=== PATIENT | female | born 1970 | race Caucasian/White ===

== ENCOUNTER → 2018-03-06 09:43 | Outpatient (CLI) | payer BC, SELFPAY ==
--- NOTE | 2018-03-06 09:00 | DI.MG.S_ITS ---
Patient Name: HOME WITT date: 1970 Sex: F Attending Physician: Kanwal Indications: Date: 03/06/2018 10:01 At the request of: GUILLERMINA HARO Procedure: MM screening mammo BI BILATERAL DIGITAL SCREENING MAMMOGRAM 3D/2D WITH CAD: 03/06/2018 CLINICAL: Baseline exam. Routine screening. No prior exams were available for comparison. There are scattered fibroglandular elements in both breasts. Current study was also evaluated with a Computer Aided Detection (CAD) system. No significant masses, calcifications, or other findings are seen in either breast. IMPRESSION: NEGATIVE There is no mammographic evidence of malignancy. A 1 year screening mammogram is recommended. This exam was interpreted at Station ID: [id number]. NOTE: For mammograms, a report in lay terms will be sent to the patient. Approximately 15% of breast malignancies will not be visualized mammographically. In the management of a palpable breast mass, a negative mammogram must not discourage biopsy of a clinically suspicious lesion. Electronically Signed By: Joao schultz/pablo:03/08/2018 09:16:18 Entry: - 03/08/2018 09:16:18 letter sent: Normal Exam ACR BI-RADS Category 1: Negative 3341F
== END ==
PROVIDERS: Visit Provider Physician Assistant Medical
DX: Z12.31 Encounter for screening mammogram for malignant neoplasm of breast (principal)
CPT/HCPCS: 77063; 77067

== ENCOUNTER → 2019-04-08 11:35 | Outpatient (CLI) | payer BC, SELFPAY ==
--- NOTE | 2019-04-08 | DI.MG.S_ITS ---
BILATERAL DIGITAL SCREENING MAMMOGRAM 3D/2D WITH CAD: 04/08/2019 CLINICAL: Routine screening. Comparison is made to exam dated: 03/06/2018 [facility]. There are scattered fibroglandular elements in both breasts. Current study was also evaluated with a Computer Aided Detection (CAD) system. No significant masses, calcifications, or other findings are seen in either breast. There has been no significant interval change. IMPRESSION: NEGATIVE There is no mammographic evidence of malignancy. A 1 year screening mammogram is recommended. This exam was interpreted at Station ID: [id number]. NOTE: For mammograms, a report in lay terms will be sent to the patient. Approximately 15% of breast malignancies will not be visualized mammographically. In the management of a palpable breast mass, a negative mammogram must not discourage biopsy of a clinically suspicious lesion. Electronically Signed By: Joao schultz/pablo:04/08/2019 18:17:11 letter sent: Normal Exam ACR BI-RADS Category 1: Negative 3341F
== END ==
PROVIDERS: PCP Physician Assistant Medical; Referring Provider Physician Assistant Medical; Visit Provider Physician Assistant Medical
DX: Z12.31 Encounter for screening mammogram for malignant neoplasm of breast (principal)
CPT/HCPCS: 77063; 77067

== ENCOUNTER → 2020-04-10 15:39 | Outpatient (CLI) | payer BC, SELFPAY ==
--- NOTE | 2020-04-10 | DI.MG.S_ITS ---
BILATERAL DIGITAL SCREENING MAMMOGRAM 3D/2D WITH CAD: 04/10/2020 CLINICAL: Routine screening. Comparison is made to exams dated: 04/08/2019 mammogram and 03/06/2018 mammogram - [facility]. There are scattered fibroglandular elements in both breasts. Current study was also evaluated with a Computer Aided Detection (CAD) system. No significant masses, calcifications, or other findings are seen in either breast. There has been no significant interval change. IMPRESSION: NEGATIVE There is no mammographic evidence of malignancy. A 1 year screening mammogram is recommended. This exam was interpreted at Station ID: [id number]. NOTE: For mammograms, a report in lay terms will be sent to the patient. Approximately 15% of breast malignancies will not be visualized mammographically. In the management of a palpable breast mass, a negative mammogram must not discourage biopsy of a clinically suspicious lesion. Electronically Signed By: Glenn salomon/pablo:04/10/2020 15:59:01 letter sent: Normal Exam ACR BI-RADS Category 1: Negative 3341F
== END ==
PROVIDERS: PCP Physician Assistant Medical; Referring Provider Physician Assistant Medical; Visit Provider Physician Assistant Medical
DX: Z12.31 Encounter for screening mammogram for malignant neoplasm of breast (principal)
CPT/HCPCS: 77063; 77067

== ENCOUNTER → 2021-05-15 16:32 | Outpatient (CLI) | payer BC, SELFPAY ==
--- NOTE | 2021-05-15 16:36 | DI.MG.S_ITS ---
BILATERAL DIGITAL SCREENING MAMMOGRAM 3D/2D WITH CAD: 05/15/2021 CLINICAL: Routine screening. Comparison is made to exams dated: 04/10/2020 mammogram, 04/08/2019 mammogram, and 03/06/2018 mammogram - [facility]. There are scattered fibroglandular elements in both breasts. Current study was also evaluated with a Computer Aided Detection (CAD) system. No significant masses, calcifications, or other findings are seen in either breast. There has been no significant interval change. IMPRESSION: NEGATIVE There is no mammographic evidence of malignancy. A 1 year screening mammogram is recommended. This exam was interpreted at Station ID: [id number]. NOTE: For mammograms, a report in lay terms will be sent to the patient. Approximately 15% of breast malignancies will not be visualized mammographically. In the management of a palpable breast mass, a negative mammogram must not discourage biopsy of a clinically suspicious lesion. Electronically Signed By: Juan Murray M.D. [facility] [place] [place]/pentj:05/16/2021 08:30:22 letter sent: Normal Exam ACR BI-RADS Category 1: Negative 3341F
== END ==
PROVIDERS: PCP Physician Assistant; Referring Provider Physician Assistant; Visit Provider Nurse Practitioner Family
DX: Z12.31 Encounter for screening mammogram for malignant neoplasm of breast (principal)
CPT/HCPCS: 77063; 77067

== ENCOUNTER → 2022-05-20 15:43 | Outpatient (CLI) | payer BC, SELFPAY ==
--- NOTE | 2022-05-20 | DI.MG.S_ITS ---
BILATERAL DIGITAL SCREENING MAMMOGRAM 3D/2D WITH CAD: 05/20/2022 CLINICAL: Routine screening. Comparison is made to exams dated: 05/15/2021 mammogram, 04/10/2020 mammogram, and 04/08/2019 mammogram - [facility]. There are scattered areas of fibroglandular density in both breasts (category b / 25%-50% glandular tissue). Current study was also evaluated with a Computer Aided Detection (CAD) system. No significant masses, calcifications, or other findings are seen in either breast. There has been no significant interval change. IMPRESSION: NEGATIVE There is no mammographic evidence of malignancy. A 1 year screening mammogram is recommended. Based on the Tyrer Cuzick model (a risk assessment model) the patient's lifetime risk is 7.5% and her 10 year risk is 1.7%. According to the ACR, ACS, and NCCN guidelines, an annual breast MRI exam along with mammogram is recommended if the patient's lifetime risk is 20% or greater. This exam was interpreted at Station ID: [id number]. NOTE: For mammograms, a report in lay terms will be sent to the patient. Approximately 15% of breast malignancies will not be visualized mammographically. In the management of a palpable breast mass, a negative mammogram must not discourage biopsy of a clinically suspicious lesion. Electronically Signed By: Zachariah cook/pablo:05/21/2022 08:20:50 letter sent: Normal Exam ACR BI-RADS Category 1: Negative 3341F
== END ==
PROVIDERS: PCP Physician Assistant; Referring Provider Family Medicine; Visit Provider Family Medicine
DX: Z12.31 Encounter for screening mammogram for malignant neoplasm of breast (principal)
CPT/HCPCS: 77063; 77067

== ENCOUNTER → 2023-01-21 15:30 | Outpatient (CLI) | payer BC, SELFPAY ==
--- NOTE | 2023-01-21 15:31 | DI.RAD.S_ITS ---
PROCEDURE: XR KNEE LT 3V INDICATIONS: left knee pain TECHNIQUE: 3 views of the knee were acquired. COMPARISON: None. FINDINGS: Bones: No fractures or dislocations. No patellar subluxation. No suspicious bony lesions. Soft tissues: No joint effusion. No suspicious soft tissue calcifications. IMPRESSION: Unremarkable radiographic examination of left knee. Dictated by: Montrell Alonso M.D. on 01/21/2023 at 17:00 Approved by: Montrell Alonso M.D. on 01/21/2023 at 17:00
== END ==
PROVIDERS: PCP Family Medicine; Referring Provider Family Medicine; Visit Provider Family Medicine
DX: M25.562 Pain in left knee (principal)
CPT/HCPCS: 73562

== ENCOUNTER 2023-05-19 12:12 | Day surgery (SDC) | payer BC, SELFPAY ==
[2023-05-19] MEDS: LACTATED RINGERS 1,000 ML 42 ML IV (12:36)
[2023-05-19 12:45] VITALS: BP 145/75; PULSE 92; RESP 16; TEMP 36.2; O2SAT 98
--- NOTE | 2023-05-19 13:24 | PM.HP.1 ---
History of Present Illness History of Present Illness Date Patient Seen: 05/19/23 Time Patient Seen: 13:24 Chief complaint: SDC Narrative: 52-year-old woman here for screening colonoscopy. No previous colonoscopy. No family history of intestinal malignancy. She reports having to strain in order to defecate and urinate and has a history of rectocele and cystocele. [facility] Medical History Depression (~2007) ADHD (~1974) Carpal tunnel syndrome (~2015) Elevated BP without diagnosis of hypertension Restless legs syndrome (RLS) (~2017) Obstructive sleep apnea, adult (~09/2019) Obesity (BMI 30-39.9) Surgical History Anesthesia History of tonsillectomy (~1977) History of laparoscopic-assisted vaginal hysterectomy (~04/2007) Family History Father Hypertension Mother Congestive heart failure Pneumonia Social History Smoking Status: Never smoker alcohol intake: current substance use type: does not use Meds Home Medications and Allergies Home Medications Medication Instructions Recorded Confirmed Type allertec 10 mg PO DAILY 06/27/20 05/19/23 History sertraline 50 mg tablet 50 mg PO DAILY 06/27/20 05/19/23 History Allergies Allergy/AdvReac Type Severity Reaction Status Date / Time No Known Drug Allergies Allergy Verified 05/19/23 12:37 Exam Vital Signs (past 8 hours): - 05/19/23 12:45 Temperature 97.1 F L Pulse Rate 92 H Respiratory Rate 16 Blood Pressure 145/75 H Pulse Oximetry 98 Oxygen Delivery Method Room Air Oxygen Delivery Method Room Air Narrative Exam Narrative: General adult woman alert oriented no acute distress Chest nonlabored respiration Extremities warm well perfused Assessment & Plan Assessment & Plan narrative: The patient requires colorectal screening and colonoscopy is recommended. Technical details were discussed. Risks, benefits, alternatives explained. Risks including but not limited to myocardial infarction, aspiration, bleeding, pain, missed lesion, incomplete examination, need for further radiographic studies, colonic perforation, and need for major abdominal surgery were discussed. All questions were answered to their satisfaction, and they are in agreement with this plan.
[2023-05-19 13:57] VITALS: BP 138/72; PULSE 90; RESP 16; TEMP 37.2; O2SAT 97
--- NOTE | 2023-05-19 13:58 | P.OP.COLON_ITS ---
Operative Date/Time/Diagnoses Date of procedure: 05/19/23 Time of procedure: 13:58 Pre-op diagnosis: Colorectal screening Post-op diagnosis: same Procedure & Clinicians Study performed: Screening colonoscopy Same procedure as scheduled: Yes Indications: Colorectal screening Surgeon: Steven Jha Procedure Notes Procedure in detail: The history and physical was performed/updated and the patient is ASA class is 2. The procedure was discussed in detail with the patient. Potential risks complications including infection, bleeding, missed diagnosis, perforation, need for surgery, and were explained. Their questions were answered and informed consent was obtained. Patient was brought to the procedure room and placed standard monitoring equipment. The patient's vital signs were monitored continuously throughout the entire procedure. Prior to starting time-out was performed. The patient was placed in the left lateral recumbent position. Procedural sedation was administered by anesthesia. Examination began with a thorough inspection of the perianal area there was no evidence of fissures, fistulae, external hemorrhoids or cutaneous malignancy. The colonoscopy scope was then placed into the anal canal and was advanced to the cecum, which was identified by the ileocecal valve, the appendiceal orifice and the confluence of the taenia. The scope was then slowly withdrawn examining colon thoroughly in all directions, irrigating it of any residual stool. The scope was retroflexed within the rectum The patient tolerated the procedure well. They will be discharged once criteria are met. The prep was of good/excellent quality. The withdrawl time was 7 minutes. FINDINGS * Unremarkable colonoscopy. No masses polyps inflammation, normal healthy colonic mucosa Specimen(s): none sent Impression: Normal colonoscopy Post-procedure Recommendations: Colonoscopy in 10 years and High fiber diet Disposition: same day surgery
[2023-05-19 14:03] VITALS: BP 117/78; PULSE 86; RESP 16; TEMP 37.1; O2SAT 96
[2023-05-19 14:08] VITALS: BP 128/67; PULSE 83; RESP 12; O2SAT 96
== END 2023-05-19 14:35 | disposition home or self-care (01) ==
PROVIDERS: PCP Family Medicine; Referring Provider Surgery; Visit Provider Surgery
PROC: 0DJD8ZZ Inspection of Lower Intestinal Tract, Via Natural or Artificial Opening Endoscopic (ICD-10-PCS; CPT 45378; principal; 2023-05-19 13:15)
DX: Z12.11 Encounter for screening for malignant neoplasm of colon (principal)
CPT/HCPCS: 45378; J2704

== ENCOUNTER → 2023-05-25 14:37 | Outpatient (CLI) | payer BC, SELFPAY ==
--- NOTE | 2023-05-25 14:38 | DI.MG.S_ITS ---
BILATERAL DIGITAL SCREENING MAMMOGRAM 3D/2D WITH CAD: 05/25/2023 CLINICAL: Routine screening. Comparison is made to exams dated: 05/20/2022 mammogram, 05/15/2021 mammogram, and 04/10/2020 mammogram - [facility]. There are scattered areas of fibroglandular density in both breasts (category b / 25%-50% glandular tissue). Current study was also evaluated with a Computer Aided Detection (CAD) system. No significant masses, calcifications, or other findings are seen in either breast. There has been no significant interval change. IMPRESSION: NEGATIVE There is no mammographic evidence of malignancy. A 1 year screening mammogram is recommended. Based on the Tyrer Cuzick model (a risk assessment model) the patient's lifetime risk is 7.4% and her 10 year risk is 1.8%. According to the ACR, ACS, and NCCN guidelines, an annual breast MRI exam along with mammogram is recommended if the patient's lifetime risk is 20% or greater. This exam was interpreted at Station ID: [id number]. NOTE: For mammograms, a report in lay terms will be sent to the patient. Approximately 15% of breast malignancies will not be visualized mammographically. In the management of a palpable breast mass, a negative mammogram must not discourage biopsy of a clinically suspicious lesion. Electronically Signed By: Glenn salomon/pablo:05/26/2023 11:17:37 letter sent: Normal Exam ACR BI-RADS Category 1: Negative 3341F
== END ==
PROVIDERS: PCP Family Medicine; Referring Provider Family Medicine; Visit Provider Family Medicine
DX: Z12.31 Encounter for screening mammogram for malignant neoplasm of breast (principal); R92.323 Mammographic fibroglandular density, bilateral breasts
CPT/HCPCS: 77063; 77067

== ENCOUNTER 2023-07-23 08:19 | Day surgery (SDC) | payer BC, SELFPAY ==
[2023-07-15 08:09] VITALS: BMI 35.0
[2023-07-23] VITALS (20 sets, daily range): BP systolic 100–156; BP diastolic 54–75; PULSE 57–130; RESP 12–22; TEMP 36.1–37; O2SAT 97–100; BMI 34.0
[2023-07-23] MEDS: LACTATED RINGERS 1,000 ML 42 ML IV ×2 (09:04→11:35)
[2023-07-23] MEDS: SCOPOLAMINE 1 PATCH TOP (09:09)
--- NOTE | 2023-07-23 10:24 | PM.PREOP ---
Pre-operative Note COVID-19 COVID-19 status: Not tested Interval Note History & Physical reviewed/Exam performed by Physician: Yes Changes to H&P: No
[2023-07-23] MEDS: CEFAZOLIN 2 GM/100 ML PREMIX 100 ML IV (10:50)
[2023-07-23] MEDS: ACETAMINOPHEN IV 1,000 MG/100 ML VIAL 400 MG IV (11:00)
--- NOTE | 2023-07-23 11:12 | SUR.OPER ---
Lithotomy on padded OR bed, head on pillow, arms secured on padded arm boards at <90 degrees abduction. Legs secured in padded yellow fins stirrups.
[2023-07-23] MEDS: BUPIVACAINE 0.25% W/ EPI 30 ML VIAL INJ (11:25)
--- NOTE | 2023-07-23 13:15 | PM.GYNOP.1 ---
Operative Date/Time/Diagnoses Date of procedure: 07/23/23 Time of procedure: 11:10 Pre-op diagnosis: Cystocele Rectocele Stress urinary incontinence Post-op diagnosis: same Procedure & Clinicians Procedure: Procedures Operation Date: 07/23/23 09:45 Actual Procedure Side Surgeon p Anterior/Posterior Repair Adan Rico MD s Mid Urethral sling with cystoscopy Adan Rico MD Indications: Lelo is a 52-year-old , LMP in 2004 when she had a LAVH with bilateral salpingectomy who presents for re-evaluation of pelvic organ prolapse. She is been previously diagnosed with both rectocele and cystocele by Dr. Tamika Kauffman. Pelvic floor exercises have not been beneficial. Her symptoms are largely prolapse related with what she describes as a ?tennis ball? sticking out of the vagina by the end of the day. She also has stress urinary incontinence as well as urinary hesitancy when the prolapse is at its worst. She also feels as though she incompletely empties her bladder. She denies urge incontinence but is having significant vasomotor symptoms and night sweats especially over the last year and a half. She occasionally has difficulty passing hard bowel movements but does not have to stent to effectively defecate. Patient has no stool incontinence. She is had 3 spontaneous vaginal births the largest of which was 6 lb 12 oz but she denies any obstetrical trauma or forcep use at the time of her deliveries. We discussed various options for correcting her support defects was discussions, patient has decided to proceed with anterior and posterior colporrhaphy/vaginal enterocele repair/perineoplasty, with placement of a mid urethral sling cystoscopy. She presents today for her scheduled surgery. Surgeon: Adan Rico Licensed Practical Nurse Clinic Nurse: Ariane Mccray Anesthesia Type: General Operative Notes Findings: The uterus is normal in shape but is upper limits of normal size and diffusely enlarged. Both fallopian tubes appeared to be normal as do both ovaries. In the anterior cul-de-sac to the right of the midline there was a superficial endometriotic implant over the dome of the bladder. The posterior cul-de-sac is unremarkable with the exception of a cluster of superficial endometrial implants overlying the distal portion of the left uterosacral ligament. There were no other areas of endometriosis noted in the abdominal cavity. The appendix appears normal as do the diaphragms, liver edge, and visible gallbladder. Closure Type: primary Specimen(s): none Applied: catheter Estimated blood loss (mL): 200 Blood products transfused: none Procedure in detail: With the patient in modified dorsal lithotomy position preparations were made by prepping and draping the patient in usual manner for vaginal surgery and insertion of Sykes catheter. A pre-surgical time-out was then taken in accordance with [facility] policy. A bivalve speculum was then placed in the vagina and the cervix visualized. The anterior lip of the cervix was then grasped with a single-tooth tenaculum. The uterus was sounded to 9 cm, the endocervical canal dilated slightly, and a VCare uterine manipulator with a large colpotomy cup was placed. The umbilicus was then infiltrated with 0.5% Marcaine with epinephrine. A 1 cm umbilical incision was made transversely and a Veress needle was used to insufflate the abdominal cavity with carbon dioxide. Once the abdomen was appropriately insufflated, a 5 mm trocar and sleeve were then placed through the umbilical incision. The scope was placed through the trocar and the initial assessment of the intra-abdominal contents carried out. A 2nd and 3rd 5 mm port was then placed 1st in the right mid quadrant from then the left mid quadrant by infiltration of the skin and subcutaneous tissues, a 1 cm transverse incision and insertion of the 5 mm bladeless port. Using a 3 puncture technique, the abdomen and pelvis were inspected laparoscopy and photographically documented. Uterus is mobilized with the VCare manipulator and attention turned to the left adnexa. The distal tube was then grasped and the fimbria varicose divided after coagulation with the PowerSeal device. The dissection was then carried out toward the cornua and the fallopian tube amputated. The tube was removed through a 5 mm port and dissection was then carried down using the PowerSeal device so as to divide the utero-ovarian ligament and the round ligament with blunt and sharp dissection of the broad down to the level of the uterine artery. The uterine artery was then skeletonized after development of a bladder flap, coagulated, and divided. Once hemostasis was assured on the left side attention was turned to the right and the tube, utero-ovarian ligament, round ligament, and broad ligament were dissected in a fashion exactly the same as it had been on the left. The right uterine artery was then visualized after skeletonization and coagulated and divided. The uterus was seen to cholo after coagulation of both your arteries and the cup was identified through the vaginal muscularis at its insertion with the body of the cervix. Circumferential excision of the vaginal cup was accomplished without difficulty using monopolar current and the uterus mobilized. The uterus was then removed through the vagina and the vaginal cuff closed [id number] with a series of 0 Vicryl [id number] stitches. Hemostasis was excellent, the abdomen was re-insufflated, and the pelvis inspected laparoscopically. The pelvis was inspected for any abnormality or bleeding, and the ureters were each seen to be peristalsing freely. With complete hemostasis assured, the pneumoperitoneum was vented and the ports removed. All of the 5 mm ports were then closed with 4-0 Monocryl on the skin using inverted interrupted sutures. Skin glue was placed and after the glue was dried, an appropriate dressing was applied. The case was then terminated, the patient awakened, and then transferred to PACU after having tolerated the procedure well. Complications: none Post-operative Condition: stable Disposition: PACU Plan for aftercare: Recovery in ambulatory surgery in discharge home later today if pain is under control and she is tolerating oral intake well.
--- NOTE | 2023-07-23 14:10 | PM.PN.1 ---
Subjective Subjective Date Patient Seen: 07/23/23 Time Patient Seen: 14:10 Interval history: Patient's vaginal bleeding in the PACU is in excess of what would be expected and will therefore return for EUA and control of suspected bleeding from posterior colporrhaphy. Exam Vital Signs (past 8 hours): - 07/23/23 08:58 07/23/23 13:10 07/23/23 13:17 Temperature 98.5 F 97.5 F L 97.4 F L Pulse Rate 80 91 H 57 L Respiratory Rate 16 14 12 Blood Pressure 147/72 H 120/59 L 120/57 L Pulse Oximetry 100 97 97 Oxygen Delivery Method Room Air Room Air Room Air 07/23/23 13:20 07/23/23 13:24 07/23/23 13:35 Temperature 97.2 F L 98.4 F Pulse Rate 80 84 78 Respiratory Rate 16 22 16 Blood Pressure 147/72 H 122/65 100/60 Pulse Oximetry 98 97 98 Oxygen Delivery Method Room Air Room Air Room Air 07/23/23 13:45 07/23/23 14:08 Temperature Pulse Rate 88 100 H Respiratory Rate 14 16 Blood Pressure 100/60 119/54 L Pulse Oximetry 98 98 Oxygen Delivery Method Room Air Room Air Oxygen Delivery Method Room Air [facility] Medical History (Updated 07/23/23 @ 14:14 by Adan Rico MD) Depression (~2007) ADHD (~1974) Carpal tunnel syndrome (~2015) Elevated BP without diagnosis of hypertension Restless legs syndrome (RLS) (~2017) Obstructive sleep apnea, adult (~09/2019) Obesity (BMI 30-39.9) Surgical History (Updated 07/15/23 @ 08:14 by Roula Okeefe RN) Hx of colonoscopy (05/19/23) Anesthesia History of tonsillectomy (~1977) History of laparoscopic-assisted vaginal hysterectomy (~04/2007) Family History Father Hypertension Mother Congestive heart failure Pneumonia Social History household members: spouse Smoking Status: Never smoker alcohol intake: current substance use type: does not use Assessment & Plan Assessment and plan (1) Postoperative vaginal bleeding following genitourinary procedure: Status: Acute Plan Will return to OR for removal of vaginal packing, EUA, and control of any bleeding point(s) identified. jw
--- NOTE | 2023-07-23 14:49 | SUR.OPER ---
Lithotomy on padded OR bed, head on pillow, arms secured on padded arm boards at <90 degrees abduction. Legs secured in padded yellow fins stirrups.
--- NOTE | 2023-07-23 15:00 | P.OP_ITS ---
Operative Date/Time/Diagnoses Date of procedure: 07/23/23 Time of procedure: 14:35 Pre-op diagnosis: Postop vaginal bleeding following procedure Post-op diagnosis: same Procedure & Clinicians Procedure: Procedures Operation Date: 07/23/23 09:45 Actual Procedure Side Surgeon p Anterior/Posterior Repair Adan Rico MD s Mid Urethral sling with cystoscopy Adan Rico MD Operation Date: 07/23/23 14:30 Actual Procedure Side Surgeon p Exam Under Anesthesia FLEET DIRECTOR Adan Rico MD Indications: Patient's vaginal bleeding in the PACU is in excess of what would be expected and will therefore return for EUA and control of suspected bleeding from posterior colporrhaphy. Surgeon: Adan Rico Anesthesia Type: General Operative Notes Findings: Single point of bleeding noted along the line of the posterior colporrhaphy incision easily controlled with placement of a two [id number] stitches. Closure Type: not applicable Specimen(s): none Estimated blood loss (mL): 30 Blood products transfused: none Complications: none Post-operative Condition: stable Disposition: PACU
[2023-07-23] MEDS: LACTATED RINGERS 1,000 ML 100 ML IV ×2 (15:21→16:16)
[2023-07-23] MEDS: KETOROLAC 30 MG/ML VIAL IV ×2 (16:17→21:55)
[2023-07-23] MEDS: ACETAMINOPHEN 325 MG TABLET 650 MG PO (18:36)
[2023-07-23] MEDS: DOCUSATE 100 MG CAPSULE 200 MG PO (22:00)
[2023-07-24] MEDS: ACETAMINOPHEN 325 MG TABLET 650 MG PO ×2 (00:52→06:01)
[2023-07-24] MEDS: LACTATED RINGERS 1,000 ML 100 ML IV (00:53)
[2023-07-24 03:22] VITALS: BP 107/49; PULSE 98; RESP 16; TEMP 37; O2SAT 96
[2023-07-24 05:53] LABS: Add Manual Diff / Slide Review NO; Basophils Absolute Auto 0 /uL (0-100); Basophils Percent Auto 0.1 % (0-2); Eosinophils Absolute Auto 0 /uL (0-450); Eosinophils Percent Auto 0.3 % (2-4); Hematocrit 30.6 % (36-46); Hemoglobin 10.5 g/dL (12.0-16.0); Lymphocytes Absolute Auto 1200 /uL (1100-4500); Lymphocytes Percent Auto 12.7 % (25-40); Mean Corpuscular HGB Conc 34.4 % (30-36); Mean Corpuscular Hemoglobin 28.5 PG (26-34); Mean Corpuscular Volume 82.7 fL (80-100); Monocytes Absolute Auto 1100 /uL (0-900); Monocytes Percent Auto 11.6 % (3-14); Neutrophils Absolute Auto 7100 /uL (1500-7000); Neutrophils Percent Auto 75.3 % (50-75); Platelet Count 189 X10^3/uL (150-400); Red Cell Distribution Width 13.6 % (11.6-14.8); White Blood Cell Count 9.5 X10^3/uL (4.5-11.0)
[2023-07-24] MEDS: KETOROLAC 30 MG/ML VIAL IV ×2 (06:01→10:10)
[2023-07-24 08:00] VITALS: BP 118/58; PULSE 99; RESP 16; TEMP 36.6; O2SAT 99
[2023-07-24] MEDS: DOCUSATE 100 MG CAPSULE 200 MG PO (08:45)
[2023-07-24] MEDS: TAMSULOSIN 0.4 MG CAPSULE PO (08:45)
[2023-07-24] MEDS: SERTRALINE 50 MG TABLET PO (08:45)
--- NOTE | 2023-07-24 13:21 | P.DS_ITS ---
History of Present Illness History of Present Illness Date Patient Seen: 07/24/23 Time Patient Seen: 13:21 Chief complaint: Pelvic organ prolapse Narrative: Lelo is a 52-year-old , LMP in 2004 when she had a LAVH with bilateral salpingectomy who presents for re-evaluation of pelvic organ prolapse. She is been previously diagnosed with both rectocele and cystocele by Dr. Tamika Kauffman. Pelvic floor exercises have not been beneficial. Her symptoms are largely prolapse related with what she describes as a ?tennis ball? sticking out of the vagina by the end of the day. She also has stress urinary incontinence as well as urinary hesitancy when the prolapse is at its worst. She also feels as though she incompletely empties her bladder. She denies urge incontinence but is having significant vasomotor symptoms and night sweats especially over the last year and a half. She occasionally has difficulty passing hard bowel movements but does not have to stent to effectively defecate. Patient has no stool incontinence. She is had 3 spontaneous vaginal births the largest of which was 6 lb 12 oz but she denies any obstetrical trauma or forcep use at the time of her deliveries. We discussed various options for correcting her support defects was discussions, patient has decided to proceed with anterior and posterior colporrhaphy/vaginal enterocele repair/perineoplasty, with placement of a mid urethral sling cystoscopy. She is admitted now for her scheduled surgery. Discharge Providers Provider Date of admission: 07/23/2023 Discharge Date: 07/24/23 Primary care physician: Debbie Christensen DO Discharge provider: Adan Rico MD Summary Hospital Course Discharge Diagnosis: Pelvic organ prolapse Stress urinary incontinence Postoperative bleeding following genitourinary procedure requiring reoperation Status post anterior and posterior repair with placement of mid urethral sling/cystoscopy Status post examination under anesthesia with placement of hemostatic suture Anemia due to operative blood losses Hospital Course: On 07/23/2023 the patient underwent anterior and posterior colporrhaphy with placement of mid urethral sling and cystoscopy. Vaginal pack was placed but in the PACU the patient was noted to have excessive bleeding and was therefore taken back to the operating room and examination under anesthesia were performed. There was a single area of bleeding from the posterior colporrhaphy suture line which was easily controlled placement of 2 [id number] sutures of 0 Vicryl. Following surgery the patient has done well with prompt return of bowel and bladder function, she is ambulating independently, tolerating regular diet, and her pain is well relieved with oral pain medications. She has normal postvoid residuals following removal of her catheter on the 1st postoperative morning and has voided with acceptable postvoid residuals. She will be discharged at this time after counseling regarding precautionary symptoms, limitations of activity, medications, and plans for follow-up which will be in 2 weeks. Medications at discharge will include resumption of all pre admission medications and oxycodone 5 mg p.o. Q 6 hours as needed for pain, dispensed 6 with no refills. In addition she will receives Cipro 500 mg p.o. b.i.d. x5 days for UTI prophylaxis following catheterization. Exam Vital Signs (past 8 hours): - 07/24/23 08:00 Temperature 97.9 F Pulse Rate 99 H Respiratory Rate 16 Blood Pressure 118/58 L Pulse Oximetry 99 Oxygen Delivery Method Room Air Oxygen Flow Rate 0 Const General: cooperative and comfortable Nutritional Appearance: average body habitus Orientation: alert and oriented x3 HENMT Head: normal to inspection, atraumatic and abrasion Ears: hearing grossly normal bilaterally Face and sinus: face symmetric Eyes General: appearance normal, both eyes and all related structures Conjunctivae: conjunctivae normal Sclera: sclerae normal EOM: EOM intact bilaterally Neck Neck: normal visual inspection Resp Effort & Inspection: normal respiratory effort and able to speak in complete sentences Auscultation: clear to auscultation bilaterally Cardio Rate: regular rate Rhythm: regular rhythm Heart Sounds: S1 normal, S2 normal and no murmurs GI Inspection: normal to inspection and incision (Surgical dressings clean and dry) Palpation: soft, no hepatosplenomegaly and tender (Mild, diffuse postsurgical tenderness) External Female Exam: other (No significant bleeding noted) Extrem General: no calf tenderness Psych Appearance: grossly normal Mental Status: mental status grossly normal Speech and Movement: speech and movement normal Mood: congruent mood Affect: normal affect Attitude: cooperative Thought Process: normal Thought Content: normal Judgment: judgment good Objective Labs 07/24/23 05:37 Labs: Laboratory Results - last 24 hr 07/24/23 05:37 WBC 9.5 RBC 3.70 L Hgb 10.5 L Hct 30.6 L MCV 82.7 MCH 28.5 MCHC 34.4 RDW 13.6 Plt Count 189 Neut % (Auto) 75.3 H Lymph % (Auto) 12.7 L [place] % (Auto) 11.6 Eos % (Auto) 0.3 L Baso % (Auto) 0.1 Neut # (Auto) 7100 H Lymph # (Auto) 1200 [place] # (Auto) 1100 H Eos # (Auto) 0 Baso # (Auto) 0 PFSH Medical History (Updated 08/05/23 @ 14:32 by Adan Rico MD) Depression (~2007) ADHD (~1974) Carpal tunnel syndrome (~2015) Elevated BP without diagnosis of hypertension Restless legs syndrome (RLS) (~2017) Obstructive sleep apnea, adult (~09/2019) Obesity (BMI 30-39.9) Surgical History (Updated 07/15/23 @ 08:14 by Roula Okeefe RN) Hx of colonoscopy (05/19/23) Anesthesia History of tonsillectomy (~1977) History of laparoscopic-assisted vaginal hysterectomy (~04/2007) Family History Father Hypertension Mother Congestive heart failure Pneumonia Social History household members: spouse Smoking Status: Never smoker alcohol intake: current substance use type: does not use Discharge Assessment & Plan Assessment and Plan Assessment: Pelvic organ prolapse Stress urinary incontinence Postoperative bleeding following genitourinary procedure requiring reoperation Status post anterior and posterior repair with placement of mid urethral sling/cystoscopy Status post examination under anesthesia with placement of hemostatic suture Anemia due to operative blood losses Plan of Treatment: Routine postoperative instructions provided and follow-up will be in 2 weeks or as needed. Discharge Plan Discharge Plan Patient Disposition: Home Provider Discharge Comment: Please review the written instructions you received when you were discharged hospital. Your follow-up appointment is scheduled for 2 weeks after surgery and I look forward to seeing you then. If however in the meanwhile you have questions, concerns, or other issues, please contact me either through the office phone at [phone], or via the patient portal. Discharge orders & Medications Discharge Orders: Discharge (Order); Ordered 07/24/23 Ordered By: Adan Rico Prescriptions: No Action tamsulosin 0.4 mg capsule 0.4 mg PO DAILY Qty: 90 0RF cetirizine [Zyrtec] 10 mg tablet 10 mg PO DAILY PRN sertraline 50 mg tablet 50 mg PO DAILY Qty: 90 3RF Follow up/Referrals: Debbie Christensen DO [Primary Care Provider] - Adan Rico MD [Physician] - Diet/Activity/Treatments Diet: Diet as Tolerated Activity: As tolerated Other treatments: Fnfw-jqk-aqirgom Tylenol and/or ibuprofen may be used for additional pain relief. Qwxx-mfc-bfkbhxz stool softeners and/or MiraLax may be used as needed for constipation. Skin/Wound/Dressing Care Report to your healthcare provider any signs of infection, such as:: chills, fever, increased pain, unusual drainage and unusual redness Dressing: Dressing should be removed on the morning of 07/25/2023 Visit Report/Discharge Packet Instructions: DI for Cystocele and Rectocele Repair, DI for Prescription Opioid Use Stand Alone Forms: Surgery Discharge Print Language: Korean Discharge Data Primary Care Provider: Debbie Christensen Attending Provider: Adan Rico Quality VTE Deep Vein Thrombosis/Pulmonary Embolism Present on Admission: No
--- NOTE | 2023-07-24 13:54 | CM.DANOTE ---
Initial DCP Assessment Visit Note Reviewed EMR and team rounds for pt's medical status and updates. Met with pt and her family at bedside to introduce self and role. Pt was found to be walking around the room, anxious to discharge back home, however she had not voided yet. Pt resides independently with her spouse and family in their own [place] in [place]. Plan is for pt to discharge today after she is able to urinate. Spouse will plan to transport her home once she's cleared to go. Payor: [facility] Attending: Dr. Rico Pt is a 52 year-old F admitted for a planned uterine prolapse repair surgery. She is post-op day 1 and is recovering well at this time. She had been previously diagnosed by another provider with a retrocele and cystocele, saw PT for pelvic floor therapy, however she had no lasting benefit from it. She continues to have uterine prolapse and urinary incontinence persistently. Following surgery, she did have some excessive bleeding, was taken back to the OR and the bleeding was stopped. Pt and family decline any needs from DCP, and will plan on OP f/u with Dr. Rico for post-op check. DCP will continue to follow and assist with any further evolving needs prior to her discharge. Discharge Planning/Care Management CM Discharge Assessment Start: 07/24/23 13:52 Freq: Status: Active Protocol: Document 07/24/23 13:52 DPL (Rec: 07/24/23 13:54 DPL [id number]) Discharge Planning Assessment Assigned Brass Plater SONIA Nichols Advance Directives? Yes Advance Directives on File No History Provided By Patient,Medical Record Has Patient been admitted in last 30 No days? Prior Living Arrangements House Household Members spouse Type of transporation used prior to Drives own vehicle admit Independent with ADL's Yes Is patient alert and oriented? Yes Comment N/A Community Services used prior to Physical Therapy admission: Comment No needs were identified for DCP during this admission. Barriers to Discharge No Discharge Plan Home Transportation Arrangement Spouse Referrals Initiated None needed Whiteboard Updated in Patient Room with Yes name and ext. # of Brass Plater Review Status In Process Please Provide Date Initial DC 07/24/23 Assessment Was Performed Pre-Anesthesia Assessment Start: 07/15/23 08:09 Freq: Status: Active Protocol: Document 07/15/23 08:09 CAB (Rec: 07/15/23 08:13 CAB [id number]) Pre-Anesthesia Assessment Patient Information Reviewed Via Chart Review Primary Care Provider Debbie Christensen Seen Specialist in Last 12 Months Yes Specialist Seen Pin Or Clip Fastener Primary Language Slovak Painter Required No Height 162.56 cm Weight 92.533 kg Body Mass Index (BMI) 35.0 Barriers to Learning None Hx Anesthesia Reactions No Hx Family Anesthesia Reaction No Hx Malignant Hyperthermia No Hx Blood Transfusion Reaction No Anesthesia Review Requested No Acoustic Engineer No alcohol intake current alcohol intake frequency holidays/special occasions only Smoking Status Never smoker Substance Use Type does not use History of Falling (Recent or History of No ) Patient is completely paralyzed or No completely immobile Mental Status Oriented to own ability Is patient on oxygen? No Hx Sleep Apnea Yes CPAP/BIPAP use prescribed and used routinely Currently Taking a Beta Josse No Anti-Coagulant Therapy No Cardiac Testing No Hx Pacemaker/ICD No Pacemaker Rep Required? No Cardiac Clearance Received No Bladder Pattern Hesitancy,Incontinent, Retention Urinary Catheter Present No Hx Urinary Self Catheterization No Diabetes No Patient No Lactating No Presence of External or Internal Medical No Devices Marital Status Lives With spouse Patient Discharge Plan Description Return Home Advance Directives? Yes
--- NOTE | 2023-07-24 14:40 | PC.NURSE ---
Dayshift: Pt out of bed, ind in room and able to void 400+mL with no pain or difficulty. Pt and spouse provided education on post-surgical infection control and care. Pt and spouse stated understanding and questions answered. All belongings collected by patient. PIV d/c'ed. Pt escorted via wheelchair by PCT Maria Guadalupe to exit, accompanied by spouse.
== END 2023-07-24 14:40 | disposition home or self-care (01) ==
LOC: OR 08:20 → AC 08:21
PROVIDERS: PCP Family Medicine; Referring Provider Obstetrics & Gynecology; Visit Provider Obstetrics & Gynecology
PROC: 0TSD0ZZ Reposition Urethra, Open Approach (ICD-10-PCS; 2023-07-23 09:45)
DX: N81.10 Cystocele, unspecified (principal); N81.6 Rectocele; N39.3 Stress incontinence (female) (male); N99.820 Postprocedural hemorrhage of a genitourinary system organ or structure following a genitourinary system procedure
CPT/HCPCS: 57260; 36415; 57288; 85025; C1771; J0136; J0690; J1100; J1885; J2250; J2405; J2704; J3010

== ENCOUNTER → 2023-07-31 15:26 | Outpatient (CLI) | payer BC, SELFPAY ==
[2023-07-31 13:04] VITALS: BMI 34.0
== END ==
PROVIDERS: PCP Family Medicine; Visit Provider Obstetrics & Gynecology
DX: N39.3 Stress incontinence (female) (male) (principal)
CPT/HCPCS: 87086

== ENCOUNTER → 2024-02-25 08:19 | Outpatient (CLI) | payer BC, SELFPAY ==
[2024-02-23 09:05] VITALS: BMI 34.0
[2024-02-25 09:18] LABS: Hematocrit 43.1 % (36-46); Hemoglobin 14.4 g/dL (12.0-16.0); Mean Corpuscular HGB Conc 33.4 % (30-36); Mean Corpuscular Hemoglobin 28.7 PG (26-34); Mean Corpuscular Volume 85.8 fL (80-100); Platelet Count 208 X10^3/uL (150-400); Red Blood Cell Count 5.02 X10^6/uL (4.0-5.2); Red Cell Distribution Width 13.7 % (11.6-14.8)
[2024-02-25 09:51] LABS: Alanine Aminotransferase 23 IU/L (<35); Albumin 4.5 g/dL (3.5-5.0); Albumin Globulin Ratio 1.4 (1.0-2.8); Alkaline Phosphatase 78 U/L (38-126); Aspartate Aminotransferase 24 IU/L (14-36); BUN Creatinine Ratio 30.4 (6-22); Bilirubin Total 0.5 mg/dL (0.2-1.3); Blood Urea Nitrogen 21 mg/dL (7-17); Calcium 9.2 mg/dL (8.4-10.2); Carbon Dioxide 29 mmol/L (22-32); Chloride 101 mmol/L (98-107); Cholesterol 286 mg/dL (140-199); Estimated Glomerular Filt Rate > 60 mL/min (>60); Globulin 3.3 g/dL (1.7-4.1); Glucose 88 mg/dL (70-100); HDL Cholesterol 69 mg/dL (40-60); HEMOLYSIS < 15 (0-50); LDL Cholesterol Calculated 197 mg/dL (<100); Potassium 3.9 mmol/L (3.4-5.1); Sodium 135 mmol/L (137-145); Total Protein 7.8 g/dL (6.3-8.2); Triglycerides 101 mg/dL (35-150)
[2024-02-25 10:15] LABS: TSH w/ Reflex to FT4 1.92 uIU/mL (0.47-4.68)
[2024-02-26 22:35] LABS: Insulin Level Total 8.9 uIU/mL (2.6-24.9)
[2024-02-28 14:09] LABS: Percent Free Testosterone 2.26 % (0.50-2.80); Testosterone Free 0.32 ng/dL (0.10-0.85); Testosterone Total 14.1 ng/dL (.)
[2024-03-01 09:36] LABS: Estradiol, Sensitive 7.9 pg/mL (.)
== END ==
PROVIDERS: PCP Family Medicine; Referring Provider Family Medicine; Visit Provider Family Medicine
DX: Z00.00 Encounter for general adult medical examination without abnormal findings (principal); E88.810 Metabolic syndrome; E66.9 Obesity, unspecified; F32.A Depression, unspecified; R03.0 Elevated blood-pressure reading, without diagnosis of hypertension; N95.1 Menopausal and female climacteric states
CPT/HCPCS: 36415; 80053; 80061; 82627; 82670; 83036; 83525; 84402; 84403; 84443; 85027

== ENCOUNTER → 2024-06-13 16:09 | Outpatient (CLI) | payer BC, SELFPAY ==
[2024-02-23 09:05] VITALS: BMI 34.0
--- NOTE | 2024-06-13 16:10 | DI.MG.S_ITS ---
MM screening mammo BI: 06/13/2024. BI-RADS: 0 CLINICAL: 53-year old female for bilateral screening mammogram. Tyrer-Cuzick lifetime risk of 4.8%. No personal or first-degree family history of breast cancer. PRIOR EXAMS 05/25/2023, 05/20/2022, 05/15/2021, 04/10/2020, 04/08/2019, 03/06/2018. MAMMOGRAPHY TECHNIQUE: 2D and 3D (tomosynthesis) digital mammographic views obtained, with additional images as needed for full coverage. Current study was also evaluated with a Computer Aided Detection (CAD) system. DENSITY A. The breasts are almost entirely fatty. MAMMOGRAPHY FINDINGS Right: No suspicious mass, asymmetry, microcalcification, or other abnormality seen. No significant change from comparison. Left: Upper Outer Quadrant, Middle depth: Focal asymmetry needing additional imaging evaluation. IMPRESSION: Right * No evidence of malignancy. Left (Asymmetry): Upper Outer Quadrant, Middle depth * Incomplete - focal asymmetry needing additional imaging evaluation. RECOMMENDATIONS Left: Upper Outer Quadrant, Middle depth * Further evaluation with diagnostic mammography and diagnostic ultrasound. Ultrasound to be performed only if needed. OVERALL ASSESSMENT CATEGORY BI-RADS-0: Incomplete - Need Additional Imaging Evaluation. ELECTRONICALLY SIGNED: Kerry Mcdermott M.D. on 06/15/2024 at 01:15:50 PM PT Interpreting Station ID: [id number]
== END ==
PROVIDERS: PCP Family Medicine; Referring Provider Family Medicine; Visit Provider Family Medicine
DX: Z12.31 Encounter for screening mammogram for malignant neoplasm of breast (principal); R92.313 Mammographic fatty tissue density, bilateral breasts
CPT/HCPCS: 77063; 77067

== ENCOUNTER → 2024-07-11 13:29 | Outpatient (CLI) | payer BC, SELFPAY ==
[2024-02-23 09:05] VITALS: BMI 34.0
--- NOTE | 2024-07-11 13:30 | DI.MG.S_ITS ---
MM diagnostic mammo unilat LT, US breast LT limited: 07/11/2024 BI-RADS: 2 CLINICAL: 53-year old female for left diagnostic mammogram and left diagnostic breast ultrasound that is a recall from screening on 06/13/2024. Tyrer-Cuzick lifetime risk of 4.8%. No personal or first-degree family history of breast cancer. PRIOR EXAMS Mammogram(s): 06/13/2024. Six Other Exams on 05/25/2023, 05/20/2022, 05/15/2021, 04/10/2020, 04/08/2019, 03/06/2018. MAMMOGRAPHY TECHNIQUE: 2D and 3D (tomosynthesis) digital mammographic views obtained, with additional images as needed for full coverage. Current study was also evaluated with a Computer Aided Detection (CAD) system. ULTRASOUND TECHNIQUE Real-time burnette scale and color doppler imaging of the area of clinical interest was performed with image documentation. DENSITY Left: A. The breasts are almost entirely fatty. MAMMOGRAPHY FINDINGS Left: Upper Outer Quadrant, Middle depth: There is an asymmetry present. Previously described focal asymmetry is less prominent and appears very similar in size and appearance compared to previous exams. ULTRASOUND FINDINGS Left: Upper Outer Quadrant: There is no sonographic correlate for the mammographic finding. Benign appearing fibroglandular tissue in the left breast upper outer quadrant. No suspicious mass or disturbed parenchymal echotexture. No suspicious sonographic finding with typically benign findings noted. IMPRESSION: Left * No evidence of malignancy with benign findings. RECOMMENDATIONS Bilateral * Annual screening mammography. COMMENTS: Findings and recommendations were conveyed to the patient during today's evaluation. OVERALL ASSESSMENT CATEGORY BI-RADS-2: Benign. The [employer] recommends annual screening mammography beginning at age 40 for women with average risk of breast cancer. ELECTRONICALLY SIGNED: Joao Martinez M.D. on 07/11/2024 at 02:56:22 PM PT Interpreting Station ID: [id number]
== END ==
PROVIDERS: PCP Family Medicine; Referring Provider Family Medicine; Visit Provider Family Medicine
DX: R92.8 Other abnormal and inconclusive findings on diagnostic imaging of breast (principal); R92.322 Mammographic fibroglandular density, left breast
CPT/HCPCS: 76642; 77065; G0279

== ENCOUNTER → 2024-12-12 07:50 | Outpatient (CLI) | payer BC, SELFPAY ==
[2024-02-23 09:05] VITALS: BMI 34.0
[2024-12-12 08:16] LABS: Hematocrit 41.6 % (36-46); Hemoglobin 13.9 g/dL (12.0-16.0); Mean Corpuscular HGB Conc 33.5 % (30-36); Mean Corpuscular Hemoglobin 28.0 PG (26-34); Mean Corpuscular Volume 83.6 fL (80-100); Platelet Count 201 X10^3/uL (150-400)
[2024-12-12 09:23] LABS: Alanine Aminotransferase 24 IU/L (<35); Albumin 4.6 g/dL (3.5-5.0); Albumin Globulin Ratio 1.5 (1.0-2.8); Alkaline Phosphatase 90 U/L (38-126); Blood Urea Nitrogen 16 mg/dL (7-17); Calcium 9.1 mg/dL (8.4-10.2); Carbon Dioxide 24 mmol/L (22-32); Chloride 103 mmol/L (98-107); Cholesterol 268 mg/dL (140-199); Estimated Glomerular Filt Rate > 60 mL/min (>60); Globulin 3.1 g/dL (1.7-4.1); Glucose 96 mg/dL (70-99); HDL Cholesterol 64 mg/dL (40-60); HEMOLYSIS 24 (0-50); Potassium 4.1 mmol/L (3.4-5.1); Sodium 136 mmol/L (137-145); Total Protein 7.7 g/dL (6.3-8.2); Triglycerides 125 mg/dL (35-150)
[2024-12-13 03:36] LABS: CRP, High Sensitivity 9.39 mg/L (0.00-3.00)
== END ==
PROVIDERS: PCP Family Medicine; Referring Provider Family Medicine; Visit Provider Family Medicine
DX: Z00.00 Encounter for general adult medical examination without abnormal findings (principal); N99.820 Postprocedural hemorrhage of a genitourinary system organ or structure following a genitourinary system procedure; N95.1 Menopausal and female climacteric states
CPT/HCPCS: 36415; 80053; 80061; 82627; 82670; 84403; 85027; 86140

== ENCOUNTER → 2025-01-09 09:42 | Outpatient (CLI) | payer BC, SELFPAY ==
[2024-02-23 09:05] VITALS: BMI 34.0
--- NOTE | 2025-01-09 09:42 | DI.RAD.S_ITS ---
PROCEDURE: XR DEXA AXIAL SKELETON INDICATIONS: screen osteoporosis COMPARISON: None. FINDINGS: Lumbar Spine: Bone mineral density 1.059 g/cm2, T score 0.1. Left Femoral Neck: Bone mineral density 0.749 g/cm2, T score -0.9. Left Hip: Bone mineral density 0.935 g/cm2, T score -0.1. Fracture Risk Calculation (when applicable): 10-year fracture risk of a major osteoporotic fracture 4.6 percent and of a hip fracture 0.2 percent. (T score greater or equal to -1.0 to: NORMAL) (T score from -1.1 to -2.4: OSTEOPENIA) (T score less than or equal to -2.5: OSTEOPOROSIS) IMPRESSION: Normal bone mineral density by WHO classification. Follow-up guidelines as follows: Osteoporosis: Consider a repeat DEXA and Vertebral Fracture Assessment (VFA) exam in 2 years or sooner if medically necessary, to reassess this patient's status. Osteopenia: Consider a repeat DEXA in 2-3 years to reassess this patient's status, or if there is a new clinical indication. Normal: Consider a repeat DEXA in 5 years or sooner, or if there is a new clinical indication. All treatment decisions require clinical judgment and consideration of individual patient factors, including patient preferences, comorbidities, previous drug use, risk factors not captured in the FRAX model (e.g., frailty, falls, vitamin D deficiency, increased bone turnover, interval significant decline in bone density ) and possible under- or over-estimation of fracture risk by FRAX. In addition, the NOF Guide recommends that FDA-approved medical therapies be considered in postmenopausal women and men age >= 50 years with a: * Hip or vertebral (clinical or morphometric) fracture * T-score of <=-2.5 at the spine or hip * Ten-year fracture probability by FRAX of >= 3% for hip fracture or >=20% for major osteoporotic fracture. Dictated by: Danilo Mccain M.D. on 01/09/2025 at 13:50 Approved by: Danilo Mccain M.D. on 01/09/2025 at 13:51
== END ==
LOC: RAD 09:42
PROVIDERS: PCP Family Medicine; Referring Provider Family Medicine; Visit Provider Family Medicine
DX: M85.89 Other specified disorders of bone density and structure, multiple sites (principal)
CPT/HCPCS: 77080